=== PATIENT | male | born 1990 ===

== ENCOUNTER 2020-08-22 05:50 | Day surgery (SDC) | payer OTHER ==
[2020-08-22] MEDS ORDERED: NEXIUM 24HR20 MG PO (09:03)
== END 2020-08-22 10:00 | disposition home or self-care (01) ==
LOC: AMB-ENDOS 05:50
PROVIDERS: ATTEND Surgery
DX: K29.50 Unspecified chronic gastritis without bleeding (principal); K44.9 Diaphragmatic hernia without obstruction or gangrene; Z20.822 Contact with and (suspected) exposure to COVID-19